=== PATIENT | male | born 1950 | race Caucasian/White ===

== ENCOUNTER 2016-12-02 20:15 | Inpatient (IN) | END 2016-12-11 19:07 | disposition EXP | DRG 840 | DX: C92.Z0 Other myeloid leukemia not having achieved remission (principal); J18.9 Pneumonia, unspecified organism; E87.0 Hyperosmolality and hypernatremia; N17.9 Acute kidney failure, unspecified; D61.818 Other pancytopenia; Z68.1 Body mass index [BMI] 19.9 or less, adult; D69.6 Thrombocytopenia, unspecified; D89.9 Disorder involving the immune mechanism, unspecified; E87.6 Hypokalemia; Y95 Nosocomial condition; D64.9 Anemia, unspecified; Z51.5 Encounter for palliative care; Z87.891 Personal history of nicotine dependence; Z92.21 Personal history of antineoplastic chemotherapy; Z66 Do not resuscitate ==